=== PATIENT | male | born 1980 ===

== ENCOUNTER 2018-07-06 18:07 | Emergency (ER) | payer OTHER ==
[2018-07-06 19:03] VITALS: BP 124/72
[2018-07-06] MEDS ORDERED: Albuterol 2.5 MG/3 ML NEB.SOL* (0.083%) INH ONE (19:35)
--- NOTE | 2018-07-06 19:35 | UC ---
Respiratory Complaint HPI - HPI Summary HPI Summary: C/O coughing/ wheezing for the past 2 weeks, much worse at bedtime. - History of Current Complaint Chief Complaint: UCRespiratory Stated Complaint: TROUBLE BREATHING Time Seen by Provider: 07/06/18 19:25 Hx Obtained From: Patient Onset/Duration: Gradual Onset, Lasting Weeks - 2, Still Present Timing: Intermittent Episodes - at bedtime, lying down with congestion and wheezing. Severity Initially: Mild Severity Currently: Moderate Pain Intensity: 0 Character: Cough: Nonproductive Alleviating Factors: Nothing Associated Signs And Symptoms: Positive: Wheezing, Nasal Congestion Related History: Seasonal Allergies - Allergies/Home Medications Allergies/Adverse Reactions: Allergies Allergy/AdvReac Type Severity Reaction Status Date / Time Sulfa (Sulfonamide Allergy Hives Verified 07/06/18 18:57 Antibiotics) sulfamethoxazole Allergy Hives Verified 07/06/18 18:58 [From ] trimethoprim [From ] Allergy Hives Verified 07/06/18 18:58 PMH/Surg Hx/FS Hx/Imm Hx Previously Healthy: Yes - Surgical History Surgical History: Yes Surgery Procedure, Year, and Place: RIGHT CORNEAL TRANSPLANT, 2016, [place] - Family History Known Family History: Negative: Cardiac Disease, Hypertension, Diabetes - Social History Occupation: Employed Full-time Lives: With Family Alcohol Use: None Substance Use Type: None Smoking Status (MU): Light Every Day Tobacco Smoker Type: Cigarettes Amount Used/How Often: 1-2 CIGS/DAY Length of Time of Smoking/Using Tobacco: 10 YEARS - Immunization History Most Recent Tetanus Shot: UTD Review of Systems All Other Systems Reviewed And Are Negative: Yes Eyes: Positive: Eye Redness - OD after corneal transplant ENT: Positive: Nasal Discharge Respiratory: Positive: Shortness Of Breath, Cough Is Patient Immunocompromised?: No Physical Exam Triage Information Reviewed: Yes Appearance: Well-Appearing, No Pain Distress, Well-Nourished Vital Signs: Initial Vital Signs Temp 98.7 F 07/06/18 18:59 Pulse 81 07/06/18 18:59 Resp 18 07/06/18 18:59 BP 124/72 07/06/18 18:59 Pulse Ox 98 07/06/18 18:59 Vital Signs Reviewed: Yes Eyes: Positive: Conjunctiva Inflamed - OD ENT: Positive: Pharynx normal, Nasal congestion - with allergic changes, TMs normal Neck exam: Normal Respiratory: Positive: Lungs clear, Wheezing - expiratory wheeze with coughing. Cardiovascular Exam: Normal Musculoskeletal Exam: Normal Neurological Exam: Normal Psychological Exam: Normal Skin Exam: Normal UC Diagnostic Evaluation - Laboratory O2 Sat by Pulse Oximetry: 98 Re-Evaluation - Re-Evaluation First Eval Re-Evaluation Time: 20:15 Change: Improved - breathing is better after nebulizer. Moving air better. Respiratory Course/Dx - Differential Dx/Diagnosis Differential Diagnosis/HQI/PQRI: Asthma, Lower Resp Infection, Sinusitis Provider Diagnosis: Mild persistent allergic asthma Discharge - Sign-Out/Discharge Documenting (check all that apply): Patient Departure All imaging exams completed and their final reports reviewed: No Studies - Discharge Plan Condition: Stable Disposition: HOME Prescriptions: Montelukast Sodium TAB* [Singulair 10 MG TAB*] 10 mg PO BEDTIME #30 tab predniSONE TAB* [Deltasone 20 MG TAB*] 60 mg PO DAILY #18 tab Patient Education Materials: Asthma (ED), Allergies (ED), Prednisone (By mouth) , Montelukast (By mouth) Referrals: Millicent Brower PA [Primary Care Provider] - 2 Weeks (recheck asthma) Additional Instructions: a HEPA air filter in the bedroom might be helpful. - Billing Disposition and Condition Condition: STABLE Disposition: Home
[2018-07-06] MEDS ORDERED: predniSONE TAB* 20 MG PO ONE (20:16)
== END 2018-07-06 20:29 | disposition home or self-care (01) ==
LOC: UCCORT 18:07
DX: J45.909 Unspecified asthma, uncomplicated (principal); Z88.2 Allergy status to sulfonamides; Z88.1 Allergy status to other antibiotic agents; F17.210 Nicotine dependence, cigarettes, uncomplicated
CPT/HCPCS: 99212; G0463; J7512